=== PATIENT | female | born 1970 | race Caucasian/White ===

== ENCOUNTER 2016-09-08 22:04 | Emergency (ER) | payer SELFPAY ==
[2016-09-08 22:09] VITALS: BP 111/77; PULSE 89; RESP 16; TEMP 98.7; O2SAT 100
--- NOTE | 2016-09-08 22:45 | C.PDOC ---
History Of Present Illness 46 y/o female presents to ED with c/o atraumatic left ankle swelling onset today. Patient denies any pain, new weakness or numbness, recent travel, shortness of breath, chest pain, calf pain, or other complaints. Pt states she sits a lot at work Time Seen by Provider: 09/08/16 22:27 History Per: Patient History/Exam Limitations: no limitations Onset/Duration Of Symptoms: Hrs Current Symptoms Are (Timing): Still Present Recent travel outside of the [place]: No Past Medical History Reviewed: Historical Data, Nursing Documentation, Vital Signs Vital Signs: Last Vital Signs Temp 98.7 F 09/08/16 22:06 Pulse 89 09/08/16 22:06 Resp 16 09/08/16 22:06 BP 111/77 09/08/16 22:06 Pulse Ox 100 09/08/16 23:58 - Medical History PMH: Hypercholesterolemia, Kidney Stones, Migraine, Chronic Kidney Disease Family History: States: No Known Family Hx - Social History Hx Alcohol Use: Yes Hx Substance Use: No - Immunization History Hx Tetanus Toxoid Vaccination: No Hx Influenza Vaccination: No Hx Pneumococcal Vaccination: No Review Of Systems Except As Marked, All Systems Reviewed And Found Negative. Constitutional: Negative for: Fever, Chills Cardiovascular: Negative for: Chest Pain, Palpitations Respiratory: Negative for: Cough, Shortness of Breath Musculoskeletal: Positive for: Other (left ankle swelling ). Negative for: Leg Pain, Foot Pain Skin: Negative for: Rash Neurological: Negative for: Weakness, Numbness Physical Exam - Physical Exam Appears: Non-toxic, No Acute Distress Skin: Normal Color, Warm, Dry Head: Atraumatic, Normacephalic Extremity: Normal ROM, No Tenderness, No Calf Tenderness, Capillary Refill (< 2 sec.), No Deformity, Swelling (mild swelling left lateral malleolus, no pitting ) Extremity: Bilateral: Normal Color And Temperature Pulses: Left Dorsalis Pedis: Normal, Right Dorsalis Pedis: Normal Neurological/Psych: Oriented x3, Normal Motor, Normal Sensation Gait: Steady ED Course And Treatment O2 Sat by Pulse Oximetry: 100 (RA) Pulse Ox Interpretation: Normal Progress Note: On reassessment, patient is resting comfortably, and is in no acute distress. Patient is ambulatory in ED w/o distress. Patient instructed to follow up with clinic/PMD within 1-2 days. Disposition Counseled Patient/Family Regarding: Diagnosis, Need For Followup, Rx Given - Disposition Referrals: Shaik Stoll MD [Staff Provider] - Disposition: HOME/ ROUTINE Disposition Time: 22:42 Condition: STABLE Additional Instructions: ELEVATE LEG FOLLOW UP WITH PMD IN 2 DAYS FOR REEVALUATION RETURN TO ER IF DIFFICULTY BREATHING, MODERATE SWELLING, CALF PAIN, OR WORSE Instructions: Leg Edema (ED) - Clinical Impression Clinical Impression: Left ankle swelling, Dependent edema - PA / URBAN FORESTER / Resident Statement MD/DO has reviewed & agrees with the documentation as recorded. - Scribe Statement The provider has reviewed the documentation as recorded by the Scribe joana pratt All medical record entries made by the Ben were at my direction and personally dictated by me. I have reviewed the chart and agree that the record accurately reflects my personal performance of the history, physical exam, medical decision making, and the department course for this patient. I have also personally directed, reviewed, and agree with the discharge instructions and disposition.
== END 2016-09-08 22:47 | disposition home or self-care (01) ==
LOC: C.ER 22:04
DX: R60.9 Edema, unspecified (principal)

== ENCOUNTER 2017-08-16 00:05 | Emergency (ER) | payer SELFPAY ==
[2017-08-16 00:23] VITALS: RESP 20
[2017-08-16 01:08] LABS: SQUAMOUS EPITHIAL 6 /hpf (0-5); URINE BACTERIA RARE (<OCC); URINE BILIRUBIN NEGATIVE (NEGATIVE); URINE BLOOD 1+ (NEGATIVE); URINE CLARITY Hazy (Clear); URINE COLOR Amber (YELLOW); URINE GLUCOSE (UA) NORMAL (Normal); URINE LEUKOCYTE ESTERASE 3+ Leu/uL (Negative); URINE PROTEIN 1+ mg/dL (NEGATIVE)
--- NOTE | 2017-08-16 01:43 | C.PDOC ---
History Of Present Illness 47 year old female presents to the ED c/o urticarial rash that started 1 hour ago. Patient reports she was feeling dysuria, frequency, urgency so patient took pyridium and then bactrim. Patient states that after taking bactrim she developed the rash. Patient reports she has never taken bactrim beforfe but she has taken pyridium before. Patient denies trouble speaking, trouble breathing, tongue swelling, lip swelling, SOB. Time Seen by Provider: 08/16/17 00:25 Chief Complaint (Nursing): Allergic Reaction History Per: Patient History/Exam Limitations: no limitations Onset/Duration Of Symptoms: Hrs (1) Current Symptoms Are (Timing): Still Present Context: Other Possible Cause: Medication (bactrim) Associated Symptoms: Skin Rash, Itching Recent travel outside of the [place]: No Additional History Per: Patient Past Medical History Reviewed: Historical Data, Nursing Documentation, Vital Signs Vital Signs: Last Vital Signs Temp 98.5 F 08/16/17 00:20 Pulse 83 08/16/17 00:20 Resp 20 08/16/17 00:20 BP 102/72 08/16/17 00:20 Pulse Ox 95 08/16/17 01:47 - Medical History PMH: Hypercholesterolemia, Kidney Stones, Migraine, Chronic Kidney Disease Surgical History: No Surg Hx Family History: States: Unknown Family Hx - Social History Hx Alcohol Use: Yes Hx Substance Use: No - Immunization History Hx Tetanus Toxoid Vaccination: No Hx Influenza Vaccination: No Hx Pneumococcal Vaccination: No Review Of Systems Constitutional: Negative for: Fever, Chills ENT: Negative for: Nose Discharge, Mouth Swelling, Throat Swelling Cardiovascular: Negative for: Chest Pain, Palpitations Respiratory: Negative for: Shortness of Breath Gastrointestinal: Negative for: Nausea, Vomiting Skin: Positive for: Rash Physical Exam - Physical Exam Appears: Non-toxic, No Acute Distress Skin: Normal Color, Warm, Dry, Rash (generalized urticarial rash) Head: Atraumatic, Normacephalic Eye(s): bilateral: Normal Inspection Oral Mucosa: Moist Tongue: No Swelling Lips: No Swelling Neck: Normal ROM, Supple Chest: Symmetrical Cardiovascular: Rhythm Regular Respiratory: Normal Breath Sounds, No Rales, No Rhonchi, No Wheezing, Other ( patent ariways, normal voice) Gastrointestinal/Abdominal: Soft, No Tenderness, No Guarding, No Rebound Extremity: Normal ROM, No Tenderness, No Swelling Neurological/Psych: Oriented x3, Normal Speech Gait: Steady ED Course And Treatment O2 Sat by Pulse Oximetry: 95 (ON RA) Pulse Ox Interpretation: Normal Progress Note: Plan: - benadryl 50 mg PO. - macrobid 100 mg PO. - pepcid 20 mg PO. - prednisone 60 mg PO. - UA. Patient still c/o dysuria, UA sent came back showing some infection. Disposition - Disposition Referrals: Shaik Stoll MD [Staff Provider] - Disposition Time: 02:17 Condition: STABLE Additional Instructions: Follow up with PMD within 1-2 days. Return to ED if feel worse. Prescriptions: DiphenhydrAMINE [Benadryl] 25 mg PO .Q4-6 H #30 cap Nitrofurantoin Macrocrystals [Macrobid] 1 cap PO BID #14 cap Famotidine [Pepcid] 20 mg PO BID #20 tab predniSONE [predniSONE Tab] 2 tab PO DAILY #8 tab Instructions: Urinary Tract Infections in Adults, Hives (DC) Forms: [place] ([place]er) - Clinical Impression Clinical Impression: Allergic urticaria, UTI (urinary tract infection) - PA / ACCOUNT DEVELOPMENT REPRESENTATIVE / Resident Statement MD/DO has reviewed & agrees with the documentation as recorded. - Scribe Statement The provider has reviewed the documentation as recorded by the Scribe Anshu Cameron All medical record entries made by the Scribe were at my direction and personally dictated by me. I have reviewed the chart and agree that the record accurately reflects my personal performance of the history, physical exam, medical decision making, and the department course for this patient. I have also personally directed, reviewed, and agree with the discharge instructions and disposition.
[2017-08-16 02:30] VITALS: BP 106/77; PULSE 74; TEMP 98.2
[2017-08-16 05:19] VITALS: O2SAT 95
== END 2017-08-16 02:30 | disposition home or self-care (01) ==
LOC: C.ER 00:05
DX: L50.0 Allergic urticaria (principal); N39.0 Urinary tract infection, site not specified